=== PATIENT | female | born 1975 | race American Indian/Alaskan Native ===

== ENCOUNTER 2017-07-29 07:23 | Emergency (ER) | payer BC, MEDICARE ==
[2017-07-29 08:12] VITALS: BP 168/104
[2017-07-29 09:44] LABS: Basophils % (Auto) 0.7 % (0.0-1.8); Eosinophils % (Auto) 2.3 % (0.0-4.3); Hematocrit 35.1 % (30.3-42.9); Hemoglobin 11.4 gm/dl (10.1-14.3); Mean Corpuscular HGB Conc 33 % (30-34); Mean Corpuscular Hemoglobin 29 pg (28-32); Mean Corpuscular Volume 90 fl (79-97); Platelet Count 348 K/mm3 (140-440); Red Blood Count 3.88 M/mm3 (3.65-5.03); White Blood Count 9.1 K/mm3 (4.5-11.0)
[2017-07-29 09:57] LABS: INR 0.94 (0.87-1.13); Partial Thromboplastin Time 24.6 Sec. (24.2-36.6)
[2017-07-29 10:05] LABS: Alanine Aminotransferase 15 units/L (7-56); Albumin 3.8 g/dL (3.9-5); Albumin/Globulin Ratio 1.2 %; Alkaline Phosphatase 42 units/L (35-129); Anion Gap 16 mmol/L; BUN/Creatinine Ratio 11; Bilirubin,Total < 0.20 mg/dL (0.1-1.2); Blood Urea Nitrogen 11 mg/dL (7-17); Calcium 9.4 mg/dL (8.4-10.2); Carbon Dioxide 27 mmol/L (22-30); Chloride 106.7 mmol/L (98-107); Glucose 124 mg/dL (65-100); Potassium 4.2 mmol/L (3.6-5.0); Sodium 145 mmol/L (137-145)
== END 2017-07-29 22:38 | disposition left against medical advice (07) ==
LOC: ED 07:23
DX: M79.605 Pain in left leg (principal); Z53.21 Procedure and treatment not carried out due to patient leaving prior to being seen by health care provider
CPT/HCPCS: 36415; 80053; 85025; 85610; 85730

== ENCOUNTER 2019-01-26 09:43 | Outpatient (CLI) | payer MEDICARE ==
[2019-01-26 10:43] LABS: Hematocrit 36.5 % (30.3-42.9); Hemoglobin 12.1 gm/dl (10.1-14.3); Mean Corpuscular HGB Conc 33 % (30-34); Mean Corpuscular Volume 91 fl (79-97); Platelet Count 322 K/mm3 (140-440); Red Blood Count 4.03 M/mm3 (3.65-5.03); Red Cell Distribution Width 14.2 % (13.2-15.2)
[2019-01-26 10:45] LABS: Alanine Aminotransferase 16 units/L (7-56); Albumin 3.8 g/dL (3.9-5); BUN/Creatinine Ratio 10; Blood Urea Nitrogen 11 mg/dL (7-17); Calcium 9.5 mg/dL (8.4-10.2); Hemolysis Index 10
[2019-01-26 11:15] LABS: Creatinine,Urine 286.1 mg/dL (0.1-20.0); Protein/Creatinine Ratio,Urine 0.07
== END 2019-01-26 09:44 | disposition home or self-care (01) ==
LOC: LAB 09:43
PROVIDERS: ATTEND Internal Medicine
DX: Z48.22 Encounter for aftercare following kidney transplant (principal); G47.37 Central sleep apnea in conditions classified elsewhere; I10 Essential (primary) hypertension; R80.9 Proteinuria, unspecified; R44.9 Unspecified symptoms and signs involving general sensations and perceptions
CPT/HCPCS: 36415; 80053; 80197; 82570; 84156; 85027